=== PATIENT | male | born 1980 | race Caucasian/White ===

== ENCOUNTER 2016-09-23 18:50 | Emergency (ER) | payer SELFPAY ==
[~2016-09-23] VITALS: Ht 172.7 cm; Wt 95.2 kg
[~2016-09-23 18:50] MED LIST: TORADOL10 MG PO
[2016-09-23 20:07] LABS: BASOPHIL % 0.6 % (0-2); PLATELET COUNT 266 x10^3mcL (130-400); RED CELL DISTRIBUTION WIDTH 14.2 % (11.5-14.5)
[2016-09-23 20:13] LABS: CALCIUM 9.4 mg/dL (8.5-10.1); CARBON DIOXIDE 26.1 mmol/L (21-32); CHLORIDE SERUM 104 mmol/L (98-107); GFR1 > 60 mL/min; GLUCOSE SERUM 121 mg/dL (74-106); POTASSIUM SERUM 3.5 mmol/L (3.5-5.1); SODIUM SERUM 142 mmol/L (136-145)
[2016-09-23 20:17] LABS: ALBUMIN 3.9 g/dL (3.4-5.0); ALKALINE PHOSPHATASE 101 U/L (46-116); ALT/SGPT 45 U/L (16-63); AST/SGOT 20 U/L (15-37); BILIRUBIN TOTAL 0.4 mg/dL (0.20-1.00); LIPASE 147 IU/L (73-393); TOTAL PROTEIN, SERUM 7.3 g/dL (6.4-8.2)
[2016-09-23 21:11] LABS: UA SPECIFIC GRAVITY 1.025 (1.005-1.035); microscopic required? YES; urine erythrocyte TRACE (NEGATIVE)
[2016-09-23 21:51] VITALS: BP 165/114
== END 2016-09-23 21:51 | disposition home or self-care (01) ==
LOC: ED 18:50
PROVIDERS: Emergency Medicine
DX: N20.0 Calculus of kidney (principal); Z88.1 Allergy status to other antibiotic agents; Z88.5 Allergy status to narcotic agent; Z96.0 Presence of urogenital implants
CPT/HCPCS: J1885; J3010; Q0162

== ENCOUNTER 2016-10-19 21:04 | Emergency (ER) | payer SELFPAY ==
[2016-10-19 22:43] LABS: UA SPECIFIC GRAVITY 1.025 (1.005-1.035); microscopic required? YES; urine erythrocyte TRACE (NEGATIVE)
[2016-10-19 22:50] LABS: BASOPHIL % 0.6 % (0-2); PLATELET COUNT 233 x10^3mcL (130-400)
[2016-10-19 23:06] LABS: CARBON DIOXIDE 26.1 mmol/L (21-32); CHLORIDE SERUM 102 mmol/L (98-107); GFR1 > 60 mL/min; GLUCOSE SERUM 103 mg/dL (74-106); POTASSIUM SERUM 3.4 mmol/L (3.5-5.1); SODIUM SERUM 139 mmol/L (136-145)
[2016-10-19 23:10] LABS: ALBUMIN 3.8 g/dL (3.4-5.0); ALKALINE PHOSPHATASE 103 U/L (46-116); ALT/SGPT 47 U/L (16-63); AMYLASE 68 U/L (25-115); AST/SGOT 22 U/L (15-37); BILIRUBIN TOTAL 0.3 mg/dL (0.20-1.00); LIPASE 171 IU/L (73-393); TOTAL PROTEIN, SERUM 7.1 g/dL (6.4-8.2)
[2016-10-20 00:07] VITALS: BP 134/88
== END 2016-10-20 00:07 | disposition home or self-care (01) ==
LOC: ED 21:04
PROVIDERS: Emergency Medicine
DX: N20.0 Calculus of kidney (principal); Z87.442 Personal history of urinary calculi; Z88.5 Allergy status to narcotic agent; Z88.3 Allergy status to other anti-infective agents
CPT/HCPCS: J2270; Q0162

== ENCOUNTER 2016-10-24 02:36 | Emergency (ER) | payer SELFPAY ==
[2016-10-24 03:56] LABS: microscopic required? YES; urine erythrocyte TRACE (NEGATIVE)
[2016-10-24 03:57] LABS: BASOPHIL % 0.7 % (0-2); PLATELET COUNT 257 x10^3mcL (130-400)
[2016-10-24 04:18] LABS: CALCIUM 9.5 mg/dL (8.5-10.1); CARBON DIOXIDE 24.2 mmol/L (21-32); CHLORIDE SERUM 102 mmol/L (98-107); GFR1 > 60 mL/min; GLUCOSE SERUM 98 mg/dL (74-106); POTASSIUM SERUM 3.4 mmol/L (3.5-5.1); SODIUM SERUM 138 mmol/L (136-145)
[2016-10-24 04:23] LABS: ALBUMIN 4.2 g/dL (3.4-5.0); ALKALINE PHOSPHATASE 109 U/L (46-116); ALT/SGPT 42 U/L (16-63); AMYLASE 62 U/L (25-115); AST/SGOT 23 U/L (15-37); BILIRUBIN TOTAL 0.78 mg/dL (0.20-1.00); LIPASE 113 IU/L (73-393); TOTAL PROTEIN, SERUM 7.7 g/dL (6.4-8.2)
[2016-10-24 06:09] VITALS: BP 159/97
== END 2016-10-24 06:09 | disposition home or self-care (01) ==
LOC: ED 02:36
PROVIDERS: Emergency Medicine
DX: R10.31 Right lower quadrant pain (principal); Z88.1 Allergy status to other antibiotic agents; Z88.5 Allergy status to narcotic agent; Z87.19 Personal history of other diseases of the digestive system; Z87.442 Personal history of urinary calculi
CPT/HCPCS: J1170; J1885; Q0162

== ENCOUNTER 2017-04-09 04:19 | Emergency (ER) | payer OTHER ==
[2017-04-09 08:50] VITALS: BP 146/98
== END 2017-04-09 08:51 | disposition home or self-care (01) ==
LOC: ED 04:19
DX: M54.41 Lumbago with sciatica, right side (principal)
CPT/HCPCS: J1100; J2270

== ENCOUNTER 2017-05-20 03:32 | Emergency (ER) | payer OTHER ==
[2017-05-20 04:52] LABS: BASOPHIL % 0.5 % (0-2); PLATELET COUNT 239 x10^3mcL (130-400); RED CELL DISTRIBUTION WIDTH 13.7 % (11.5-14.5)
[2017-05-20 04:54] LABS: UA SPECIFIC GRAVITY 1.015 (1.005-1.035); microscopic required? YES; urine erythrocyte TRACE (NEGATIVE)
[2017-05-20 04:59] LABS: CALCIUM 8.6 mg/dL (8.5-10.1); CARBON DIOXIDE 29.8 mmol/L (21-32); CHLORIDE SERUM 105 mmol/L (98-107); CREATININE SERUM 0.9 mg/dL (0.7-1.3); GFR1 > 60 mL/min; GLUCOSE SERUM 127 mg/dL (74-106); POTASSIUM SERUM 3.6 mmol/L (3.5-5.1); SODIUM SERUM 141 mmol/L (136-145)
[2017-05-20 05:03] LABS: ALBUMIN 3.5 g/dL (3.4-5.0); ALKALINE PHOSPHATASE 104 U/L (46-116); ALT/SGPT 74 U/L (16-63); AMYLASE 59 U/L (25-115); AST/SGOT 21 U/L (15-37); BILIRUBIN TOTAL 0.33 mg/dL (0.20-1.00); LIPASE 131 IU/L (73-393); TOTAL PROTEIN, SERUM 7.1 g/dL (6.4-8.2)
[2017-05-20 07:09] VITALS: BP 147/103
== END 2017-05-20 07:09 | disposition home or self-care (01) ==
LOC: ED 03:32
PROVIDERS: Emergency Medicine Emergency Medical Services
DX: R10.13 Epigastric pain (principal); R03.0 Elevated blood-pressure reading, without diagnosis of hypertension; Z88.5 Allergy status to narcotic agent; Z88.8 Allergy status to other drugs, medicaments and biological substances; Z87.19 Personal history of other diseases of the digestive system
CPT/HCPCS: J1200; J2270; Q0092

== ENCOUNTER 2017-06-04 10:54 | Emergency (ER) | payer OTHER ==
[2017-06-04 12:56] LABS: BASOPHIL % 0.5 % (0-2); PLATELET COUNT 292 x10^3mcL (130-400)
[2017-06-04 13:06] LABS: CALCIUM 8.8 mg/dL (8.5-10.1); CARBON DIOXIDE 26.9 mmol/L (21-32); CHLORIDE SERUM 103 mmol/L (98-107); GFR1 > 60 mL/min; GLUCOSE SERUM 102 mg/dL (74-106); POTASSIUM SERUM 3.6 mmol/L (3.5-5.1); SODIUM SERUM 139 mmol/L (136-145)
[2017-06-04 14:29] VITALS: BP 140/90
== END 2017-06-04 14:29 | disposition home or self-care (01) ==
LOC: ED 10:54
PROVIDERS: Emergency Medicine
DX: G89.29 Other chronic pain (principal); M54.5 Low back pain; Z88.5 Allergy status to narcotic agent; Z88.1 Allergy status to other antibiotic agents
CPT/HCPCS: 36415; J3010

== ENCOUNTER 2017-06-09 15:12 | Emergency (ER) | payer OTHER ==
[~2017-06-09] VITALS: Ht 172.7 cm; Wt 98.0 kg
[2017-06-09 16:12] VITALS: Ht 172.7 cm; Wt 98.0 kg
[2017-06-09 20:09] VITALS: BP 133/90
== END 2017-06-09 20:09 | disposition home or self-care (01) ==
LOC: ED 15:12
DX: G89.29 Other chronic pain (principal); M54.5 Low back pain; Z88.5 Allergy status to narcotic agent; Z88.0 Allergy status to penicillin
CPT/HCPCS: J1100; J3010

== ENCOUNTER 2017-06-10 00:19 | Emergency (ER) | payer OTHER ==
[~2017-06-10] VITALS: Ht 167.6 cm; Wt 97.6 kg
[2017-06-10 00:58] VITALS: BP 146/96; Ht 167.6 cm; Wt 97.6 kg
== END 2017-06-10 05:01 | disposition left against medical advice (07) ==
LOC: ED 00:19
DX: Z53.21 Procedure and treatment not carried out due to patient leaving prior to being seen by health care provider (principal)

== ENCOUNTER 2017-06-12 19:41 | Emergency (ER) | payer OTHER ==
[~2017-06-12] VITALS: Ht 172.7 cm; Wt 98.9 kg
[2017-06-12 20:24] VITALS: Ht 172.7 cm; Wt 98.9 kg
[2017-06-12 23:47] VITALS: BP 158/107
== END 2017-06-12 23:47 | disposition home or self-care (01) ==
LOC: ED 19:41
DX: G89.29 Other chronic pain (principal); M54.9 Dorsalgia, unspecified; I10 Essential (primary) hypertension; Z88.5 Allergy status to narcotic agent; Z88.1 Allergy status to other antibiotic agents; Z96.0 Presence of urogenital implants
CPT/HCPCS: J1170; J2060; Q0162

== ENCOUNTER 2017-06-19 11:36 | Emergency (ER) | payer OTHER ==
[2017-06-19 14:12] LABS: microscopic required? NO
[2017-06-19 14:24] LABS: UA SPECIFIC GRAVITY 1.025 (1.005-1.035); urine erythrocyte NEGATIVE (NEGATIVE)
[2017-06-19 14:49] VITALS: BP 155/107
== END 2017-06-19 14:49 | disposition home or self-care (01) ==
LOC: ED 11:36
PROVIDERS: Emergency Medicine
DX: R10.9 Unspecified abdominal pain (principal); I10 Essential (primary) hypertension; Z88.5 Allergy status to narcotic agent; Z88.1 Allergy status to other antibiotic agents; Z96.0 Presence of urogenital implants
CPT/HCPCS: J1885; Q0162

== ENCOUNTER 2017-06-22 08:32 | Emergency (ER) | payer OTHER ==
[~2017-06-22] VITALS: Ht 172.7 cm; Wt 98.0 kg
[2017-06-22 08:37] VITALS: Ht 172.7 cm; Wt 98.0 kg
[2017-06-22 11:45] VITALS: BP 166/109
[2017-06-22] MEDS ORDERED: NOR5 PO (22:57)
[2017-06-23] MEDS ORDERED: MEDROL DOSEPAK4 MG PO (11:06)
[2017-06-23] MEDS ORDERED: BACLOFEN10 MG PO (11:07)
== END 2017-06-22 11:45 | disposition home or self-care (01) ==
LOC: ED 08:32
DX: G89.29 Other chronic pain (principal); M54.41 Lumbago with sciatica, right side; I10 Essential (primary) hypertension; Z88.5 Allergy status to narcotic agent; Z88.1 Allergy status to other antibiotic agents
CPT/HCPCS: J1170; J1885; J2405; J2930

== ENCOUNTER 2017-06-22 22:14 | Inpatient (IN) | payer OTHER ==
[~2017-06-22] VITALS: Ht 172.7 cm; Wt 97.6 kg
[2017-06-22 22:32] VITALS: Ht 172.7 cm; Wt 97.6 kg
[2017-06-22] MEDS ORDERED: NOR5 PO (22:57)
[2017-06-22 23:04] LABS: BASOPHIL % 1.6 % (0-2); PLATELET COUNT 273 x10^3mcL (130-400)
[2017-06-22 23:15] LABS: CALCIUM 9.8 mg/dL (8.5-10.1); CREATININE SERUM 1.4 mg/dL (0.7-1.3); POTASSIUM SERUM 4.2 mmol/L (3.5-5.1)
[2017-06-22 23:20] LABS: ALBUMIN 3.7 g/dL (3.4-5.0); BILIRUBIN TOTAL 0.4 mg/dL (0.20-1.00); TOTAL PROTEIN, SERUM 7.4 g/dL (6.4-8.2)
[2017-06-23 00:03] VITALS: BP 142/93
[2017-06-23 02:54] LABS: T3 TOTAL 1.2 ng/mL
[2017-06-23 03:09] LABS: MAGNESIUM 2.1 mg/dL (1.8-2.4); PHOSPHOROUS 3.5 mg/dL (2.5-4.9)
[2017-06-23 03:10] LABS: FREE T4 0.98 ng/dL (0.76-1.46); FREE THYROXINE INDEX 3.4 ug/dL (1.4-4.5); T4(THYROXINE) 9.8 ug/dL (4.7-13.3)
[2017-06-23 06:09] LABS: PLATELET COUNT 243 x10^3mcL (130-400); RED CELL DISTRIBUTION WIDTH 13.8 % (11.5-14.5)
[2017-06-23 06:26] LABS: CALCIUM 9.4 mg/dL (8.5-10.1); CARBON DIOXIDE 25.1 mmol/L (21-32); CHLORIDE SERUM 104 mmol/L (98-107); CREATININE SERUM 1.1 mg/dL (0.7-1.3); GFR1 > 60 mL/min; GLUCOSE SERUM 181 mg/dL (74-106); MAGNESIUM 1.9 mg/dL (1.8-2.4); PHOSPHOROUS 4.8 mg/dL (2.5-4.9); POTASSIUM SERUM 4.1 mmol/L (3.5-5.1); SODIUM SERUM 139 mmol/L (136-145)
[2017-06-23 06:36] LABS: BASOPHIL % 0 % (0-2)
[2017-06-23 09:05] VITALS: BP 145/73
[2017-06-23] MEDS ORDERED: MEDROL DOSEPAK4 MG PO (11:06)
[2017-06-23] MEDS ORDERED: BACLOFEN10 MG PO (11:07)
[2017-06-23 11:53] LABS: microscopic required? NO
[2017-06-23 12:06] LABS: UA SPECIFIC GRAVITY 1.025 (1.005-1.035); urine erythrocyte NEGATIVE (NEGATIVE)
[2017-06-23 12:30] LABS: AMPHETAMINE QUAL UR POSITIVE (NEG <=1000)
== END 2017-06-23 15:21 | disposition home or self-care (01) | DRG 347 ==
LOC: ED 22:14 → MU 22:54 → DU 22:54 → MU 23:56
PROVIDERS: Emergency Medicine; Family Medicine
DX: M51.17 Intervertebral disc disorders with radiculopathy, lumbosacral region (principal); N17.0 Acute kidney failure with tubular necrosis; R65.10 Systemic inflammatory response syndrome (SIRS) of non-infectious origin without acute organ dysfunction; S33.39 Dislocation of other parts of lumbar spine and pelvis; G89.29 Other chronic pain; I10 Essential (primary) hypertension; R73.03 Prediabetes; E78.5 Hyperlipidemia, unspecified; Z68.32 Body mass index [BMI] 32.0-32.9, adult; Z87.442 Personal history of urinary calculi; Z87.891 Personal history of nicotine dependence; W11.XXXS Fall on and from ladder, sequela
CPT/HCPCS: 82962; 83880; 84439; J0696; J0780; J1100; J1170; J1200; J7030; Q0092

== ENCOUNTER 2017-07-21 19:18 | Emergency (ER) | payer OTHER ==
[~2017-07-21] VITALS: Ht 167.6 cm; Wt 98.1 kg
[~2017-07-21 19:18] MED LIST changes: +BACLOFEN10 MG PO; +MEDROL DOSEPAK4 MG PO; +NOR5 PO
[2017-07-21 19:28] VITALS: Ht 167.6 cm; Wt 98.1 kg
[2017-07-21 22:18] VITALS: BP 158/118
== END 2017-07-21 22:15 | disposition home or self-care (01) ==
LOC: ED 19:18
DX: G89.29 Other chronic pain (principal); M54.9 Dorsalgia, unspecified; M25.552 Pain in left hip; I10 Essential (primary) hypertension
CPT/HCPCS: J2270; Q0162

== ENCOUNTER 2017-07-28 00:22 | Emergency (ER) | payer OTHER ==
[~2017-07-28] VITALS: Ht 172.7 cm; Wt 99.3 kg
[2017-07-28 00:33] VITALS: Ht 172.7 cm; Wt 99.3 kg
[2017-07-28 01:47] VITALS: BP 145/80
== END 2017-07-28 01:47 | disposition home or self-care (01) ==
LOC: ED 00:22
DX: N23 Unspecified renal colic (principal); I10 Essential (primary) hypertension; M54.30 Sciatica, unspecified side; Z88.5 Allergy status to narcotic agent; Z88.1 Allergy status to other antibiotic agents; Z87.442 Personal history of urinary calculi; Z87.438 Personal history of other diseases of male genital organs

== ENCOUNTER 2017-07-29 22:50 | Emergency (ER) | payer OTHER ==
[~2017-07-29] VITALS: Ht 172.7 cm; Wt 100.8 kg
[2017-07-29 23:05] VITALS: BP 182/106; Ht 172.7 cm; Wt 100.8 kg
[2017-07-30 00:16] LABS: microscopic required? NO
[2017-07-30 00:36] LABS: urine erythrocyte NEGATIVE (NEGATIVE)
== END 2017-07-30 00:22 | disposition left against medical advice (07) ==
LOC: ED 22:50
PROVIDERS: Emergency Medicine
DX: R10.9 Unspecified abdominal pain (principal); Z88.5 Allergy status to narcotic agent; Z88.1 Allergy status to other antibiotic agents; Z87.438 Personal history of other diseases of male genital organs; Z87.19 Personal history of other diseases of the digestive system
CPT/HCPCS: J1885; Q0162

== ENCOUNTER 2017-08-01 22:50 | Emergency (ER) | payer OTHER ==
[2017-08-02 01:10] VITALS: BP 165/113
== END 2017-08-02 01:10 | disposition home or self-care (01) ==
LOC: ED 22:50
DX: R30.0 Dysuria (principal); I10 Essential (primary) hypertension; Z88.1 Allergy status to other antibiotic agents; Z88.5 Allergy status to narcotic agent
CPT/HCPCS: J1885

== ENCOUNTER 2017-10-11 21:33 | Emergency (ER) | payer OTHER ==
[~2017-10-11] VITALS: Ht 172.7 cm; Wt 98.1 kg
[2017-10-11 23:02] VITALS: BP 145/94
== END 2017-10-11 23:02 | disposition home or self-care (01) ==
LOC: ED 21:33
DX: G89.29 Other chronic pain (principal); M54.9 Dorsalgia, unspecified; M54.30 Sciatica, unspecified side; I10 Essential (primary) hypertension; Z88.5 Allergy status to narcotic agent; Z88.1 Allergy status to other antibiotic agents
CPT/HCPCS: J1885; J3010; Q0162

== ENCOUNTER 2018-01-27 00:01 | Emergency (ER) | payer SELFPAY ==
[~2018-01-27] VITALS: Ht 172.7 cm; Wt 99.3 kg
[2018-01-27 00:19] VITALS: Ht 172.7 cm; Wt 99.3 kg
[2018-01-27 02:15] LABS: BASOPHIL % 0.6 % (0-2); PLATELET COUNT 247 x10^3mcL (130-400); RED CELL DISTRIBUTION WIDTH 13.7 % (11.5-14.5)
[2018-01-27 02:22] LABS: CALCIUM 8.6 mg/dL (8.5-10.1); CARBON DIOXIDE 28.8 mmol/L (21-32); CHLORIDE SERUM 103 mmol/L (98-107); CREATININE SERUM 0.9 mg/dL (0.7-1.3); GFR1 > 60 mL/min; GLUCOSE SERUM 109 mg/dL (74-106); POTASSIUM SERUM 3.1 mmol/L (3.5-5.1); SODIUM SERUM 138 mmol/L (136-145)
[2018-01-27 02:27] LABS: ALBUMIN 3.5 g/dL (3.4-5.0); ALKALINE PHOSPHATASE 98 U/L (46-116); ALT/SGPT 66 U/L (16-63); AMYLASE 50 U/L (25-115); AST/SGOT 26 U/L (15-37); BILIRUBIN TOTAL 0.45 mg/dL (0.20-1.00); LIPASE 144 IU/L (73-393); TOTAL PROTEIN, SERUM 6.9 g/dL (6.4-8.2)
[2018-01-27 03:13] VITALS: BP 145/95
[2018-01-27 03:35] LABS: microscopic required? YES; urine erythrocyte NEGATIVE (NEGATIVE)
== END 2018-01-27 03:13 | disposition home or self-care (01) ==
LOC: ED 00:01
PROVIDERS: Specialist
DX: R10.9 Unspecified abdominal pain (principal); I10 Essential (primary) hypertension; Z88.1 Allergy status to other antibiotic agents; Z88.5 Allergy status to narcotic agent
CPT/HCPCS: J1885; J3010; Q0092

== ENCOUNTER 2018-05-14 02:48 | Emergency (ER) | payer SELFPAY ==
[~2018-05-14] VITALS: Ht 172.7 cm; Wt 99.8 kg
[2018-05-14 02:54] VITALS: Ht 172.7 cm; Wt 99.8 kg
[2018-05-14 05:07] VITALS: BP 160/120
== END 2018-05-14 05:07 | disposition home or self-care (01) ==
LOC: ED 02:48
DX: M54.41 Lumbago with sciatica, right side (principal); I10 Essential (primary) hypertension; Z98.890 Other specified postprocedural states; Z88.5 Allergy status to narcotic agent; Z88.1 Allergy status to other antibiotic agents
CPT/HCPCS: J1885

== ENCOUNTER 2018-06-06 04:58 | Emergency (ER) | payer SELFPAY ==
[~2018-06-06] VITALS: Ht 172.7 cm; Wt 101.2 kg
[2018-06-06 06:03] VITALS: BP 178/117
== END 2018-06-06 06:29 | disposition home or self-care (01) ==
LOC: ED 04:58
DX: N23 Unspecified renal colic (principal); R31.9 Hematuria, unspecified; I10 Essential (primary) hypertension; M54.30 Sciatica, unspecified side; Z88.5 Allergy status to narcotic agent; Z88.0 Allergy status to penicillin

== ENCOUNTER 2018-06-06 11:08 | Emergency (ER) | payer SELFPAY ==
[~2018-06-06] VITALS: Ht 172.7 cm; Wt 101.6 kg
[2018-06-06 11:21] VITALS: Ht 172.7 cm; Wt 101.6 kg
[2018-06-06 11:58] LABS: ALBUMIN 3.6 g/dL (3.4-5.0); CALCIUM 9.2 mg/dL (8.5-10.1); CARBON DIOXIDE 34.2 mmol/L (21-32); CHLORIDE SERUM 100 mmol/L (98-107); CREATININE SERUM 1.1 mg/dL (0.7-1.3); GFR1 > 60 mL/min; GLUCOSE SERUM 105 mg/dL (74-106); POTASSIUM SERUM 3.4 mmol/L (3.5-5.1); SODIUM SERUM 139 mmol/L (136-145)
[2018-06-06 12:06] LABS: BASOPHIL % 0.4 % (0-2); PLATELET COUNT 269 x10^3mcL (130-400); RED CELL DISTRIBUTION WIDTH 13.5 % (11.5-14.5)
[2018-06-06 12:45] VITALS: BP 134/107
[2018-06-06 13:15] LABS: ALKALINE PHOSPHATASE 110 U/L (46-116); ALT/SGPT 70 U/L (16-63); AST/SGOT 26 U/L (15-37); BILIRUBIN TOTAL 0.3 mg/dL (0.20-1.00); TOTAL PROTEIN, SERUM 7.4 g/dL (6.4-8.2)
== END 2018-06-06 12:45 | disposition home or self-care (01) ==
LOC: ED 11:08
PROVIDERS: Emergency Medicine
DX: N23 Unspecified renal colic (principal); M54.30 Sciatica, unspecified side; I10 Essential (primary) hypertension; Z88.5 Allergy status to narcotic agent; Z98.890 Other specified postprocedural states; Z88.1 Allergy status to other antibiotic agents
CPT/HCPCS: J1885; J7030

== ENCOUNTER 2018-09-05 17:31 | Emergency (ER) | payer SELFPAY ==
[~2018-09-05] VITALS: Ht 172.7 cm; Wt 103.0 kg
[2018-09-05 17:49] VITALS: BP 158/121; Ht 172.7 cm; Wt 103.0 kg
== END 2018-09-05 18:27 | disposition home or self-care (01) ==
LOC: ED 17:31
DX: M54.5 Low back pain (principal); Z87.442 Personal history of urinary calculi; Z88.5 Allergy status to narcotic agent; Z88.1 Allergy status to other antibiotic agents
CPT/HCPCS: J1885

== ENCOUNTER 2018-10-09 13:11 | Emergency (ER) | payer MEDICAID ==
[~2018-10-09] VITALS: Ht 172.7 cm; Wt 99.8 kg
[2018-10-09 13:12] VITALS: Ht 172.7 cm; Wt 99.8 kg
[2018-10-09 14:25] VITALS: BP 156/107
== END 2018-10-09 15:00 | disposition home or self-care (01) ==
LOC: ED 13:11
DX: J06.9 Acute upper respiratory infection, unspecified (principal); I10 Essential (primary) hypertension; Z88.5 Allergy status to narcotic agent; Z88.1 Allergy status to other antibiotic agents
CPT/HCPCS: J7620

== ENCOUNTER 2018-12-01 03:14 | Emergency (ER) | payer SELFPAY ==
[~2018-12-01] VITALS: Ht 170.2 cm; Wt 99.8 kg
[2018-12-01 03:18] VITALS: Ht 170.2 cm; Wt 99.8 kg
[2018-12-01 04:44] LABS: UA SPECIFIC GRAVITY 1.015 (1.005-1.035); microscopic required? YES; urine erythrocyte 2+ (NEGATIVE)
[2018-12-01 04:45] LABS: BASOPHIL % 0.4 % (0-2); PLATELET COUNT 244 x10^3mcL (130-400); RED CELL DISTRIBUTION WIDTH 14.2 % (11.5-14.5)
[2018-12-01 04:52] LABS: CALCIUM 9.2 mg/dL (8.5-10.1); CARBON DIOXIDE 27.5 mmol/L (21-32); CHLORIDE SERUM 106 mmol/L (98-107); CREATININE SERUM 0.9 mg/dL (0.7-1.3); GFR1 > 60 mL/min; GLUCOSE SERUM 110 mg/dL (74-106); SODIUM SERUM 142 mmol/L (136-145)
[2018-12-01 04:57] LABS: ALBUMIN 3.5 g/dL (3.4-5.0); ALKALINE PHOSPHATASE 124 U/L (46-116); ALT/SGPT 51 U/L (16-63); AST/SGOT 21 U/L (15-37); BILIRUBIN TOTAL 0.45 mg/dL (0.20-1.00); LIPASE 109 IU/L (73-393); TOTAL PROTEIN, SERUM 6.8 g/dL (6.4-8.2)
[2018-12-01 06:20] VITALS: BP 153/93
== END 2018-12-01 06:20 | disposition home or self-care (01) ==
LOC: ED 03:14
PROVIDERS: Emergency Medicine
DX: N23 Unspecified renal colic (principal); I10 Essential (primary) hypertension; Z88.5 Allergy status to narcotic agent; Z88.1 Allergy status to other antibiotic agents
CPT/HCPCS: 36415; J1885; Q0092

== ENCOUNTER 2019-05-24 05:51 | Emergency (ER) | payer SELFPAY ==
[~2019-05-24] VITALS: Ht 172.7 cm; Wt 104.9 kg
[2019-05-24 07:15] LABS: BASOPHIL % 0.4 % (0-2); PLATELET COUNT 267 x10^3mcL (130-400); RED CELL DISTRIBUTION WIDTH 13.6 % (11.5-14.5)
[2019-05-24 07:21] LABS: CALCIUM 9.1 mg/dL (8.5-10.1); CARBON DIOXIDE 31.1 mmol/L (21-32); CHLORIDE SERUM 101 mmol/L (98-107); CREATININE SERUM 0.9 mg/dL (0.7-1.3); GFR1 > 60 mL/min; GLUCOSE SERUM 116 mg/dL (74-106); POTASSIUM SERUM 3.5 mmol/L (3.5-5.1); SODIUM SERUM 140 mmol/L (136-145)
[2019-05-24 07:25] LABS: ALBUMIN 3.5 g/dL (3.4-5.0); ALKALINE PHOSPHATASE 129 U/L (46-116); ALT/SGPT 52 U/L (16-63); AST/SGOT 25 U/L (15-37); BILIRUBIN TOTAL 0.3 mg/dL (0.20-1.00); TOTAL PROTEIN, SERUM 7.2 g/dL (6.4-8.2)
[2019-05-24 09:15] LABS: AMPHETAMINE QUAL UR POSITIVE (See below)
[2019-05-24 10:34] VITALS: BP 154/106
== END 2019-05-24 10:47 | disposition home or self-care (01) ==
LOC: ED 05:51
PROVIDERS: Emergency Medicine
DX: J06.9 Acute upper respiratory infection, unspecified (principal); I10 Essential (primary) hypertension; E78.00 Pure hypercholesterolemia, unspecified; N20.0 Calculus of kidney; Z88.5 Allergy status to narcotic agent; Z88.1 Allergy status to other antibiotic agents
CPT/HCPCS: 87804; J3490; J7030; Q0092

== ENCOUNTER 2019-07-28 04:08 | Emergency (ER) | payer SELFPAY ==
[~2019-07-28] VITALS: Ht 172.7 cm; Wt 103.0 kg
[2019-07-28 04:14] VITALS: Ht 172.7 cm; Wt 103.0 kg
[2019-07-28 07:04] LABS: CALCIUM 8.4 mg/dL (8.5-10.1); CARBON DIOXIDE 29.1 mmol/L (21-32); CHLORIDE SERUM 103 mmol/L (98-107); CREATININE SERUM 0.8 mg/dL (0.7-1.3); GFR1 > 60 mL/min; GLUCOSE SERUM 161 mg/dL (74-106); POTASSIUM SERUM 3.2 mmol/L (3.5-5.1); SODIUM SERUM 140 mmol/L (136-145)
[2019-07-28 07:08] LABS: ALBUMIN 3.3 g/dL (3.4-5.0); ALKALINE PHOSPHATASE 108 U/L (46-116); ALT/SGPT 54 U/L (16-63); AST/SGOT 20 U/L (15-37); BILIRUBIN TOTAL 0.4 mg/dL (0.20-1.00); LIPASE 138 IU/L (73-393); TOTAL PROTEIN, SERUM 6.8 g/dL (6.4-8.2)
[2019-07-28 07:27] LABS: BASOPHIL % 0.6 % (0-2); PLATELET COUNT 220 x10^3mcL (130-400); RED CELL DISTRIBUTION WIDTH 13.6 % (11.5-14.5)
[2019-07-28 07:42] LABS: microscopic required? YES; urine erythrocyte TRACE (NEGATIVE)
[2019-07-28 08:22] VITALS: BP 174/122
== END 2019-07-28 08:22 | disposition home or self-care (01) ==
LOC: ED 04:08
PROVIDERS: Emergency Medicine
DX: N20.0 Calculus of kidney (principal)
CPT/HCPCS: 36415; J1885; J2270; J2405

== ENCOUNTER 2020-02-07 22:49 | Emergency (ER) | payer SELFPAY ==
[~2020-02-07] VITALS: Ht 172.7 cm; Wt 100.7 kg
[2020-02-07 23:03] VITALS: Ht 172.7 cm; Wt 100.7 kg
[2020-02-07 23:31] LABS: BASOPHIL % 0.4 % (0-2); PLATELET COUNT 232 x10^3mcL (130-400); RED CELL DISTRIBUTION WIDTH 13.9 % (11.5-14.5)
[2020-02-07 23:45] LABS: ALBUMIN 3.7 g/dL (3.4-5.0); ALKALINE PHOSPHATASE 91 U/L (46-116); ALT/SGPT 61 U/L (16-63); AST/SGOT 30 U/L (15-37); BILIRUBIN TOTAL 0.5 mg/dL (0.20-1.00); CALCIUM 9.1 mg/dL (8.5-10.1); CARBON DIOXIDE 27.6 mmol/L (21-32); CHLORIDE SERUM 101 mmol/L (98-107); CREATININE SERUM 1.2 mg/dL (0.7-1.3); GFR1 > 60 mL/min; GLUCOSE SERUM 153 mg/dL (74-106); LIPASE 142 IU/L (73-393); SODIUM SERUM 138 mmol/L (136-145); TOTAL PROTEIN, SERUM 6.9 g/dL (6.4-8.2)
[2020-02-07 23:52] LABS: POTASSIUM SERUM 2.8 mmol/L (3.5-5.1)
[2020-02-08 03:02] VITALS: BP 160/99
== END 2020-02-08 03:03 | disposition home or self-care (01) ==
LOC: ED 22:49
PROVIDERS: Emergency Medicine
DX: K52.9 Noninfective gastroenteritis and colitis, unspecified (principal); E87.6 Hypokalemia; K42.9 Umbilical hernia without obstruction or gangrene; I10 Essential (primary) hypertension; Z88.5 Allergy status to narcotic agent; Z88.1 Allergy status to other antibiotic agents; Z98.890 Other specified postprocedural states
CPT/HCPCS: J2405; J3010; J3480; J7030